=== PATIENT | male | born 1980 | race Caucasian/White ===

== ENCOUNTER 2019-11-23 14:02 | Emergency (ER) | payer MEDICAID ==
[~2019-11-23] VITALS: Ht 172.7 cm; Wt 93.0 kg
[2019-11-23 15:11] LABS: BASOPHILS # (AUTO) 0.1 K/uL (0.0-8.0); BASOPHILS % (AUTO) 1.2 % (0.0-2.0); EOSINOPHILS # (AUTO) 0.3 K/uL (0.0-0.7); EOSINOPHILS % (AUTO) 4.4 % (0.0-7.0); HEMATOCRIT 45.9 % (36.7-47.1); HEMOGLOBIN 15.4 g/dL (12.5-16.3); LYMPHOCYTES # (AUTO) 2.1 K/uL (20.0-40.0); LYMPHOCYTES % (AUTO) 32.3 % (20.5-51.5); MEAN CORPUSCULAR HEMOGLOBIN 30.7 uug (23.8-33.4); MEAN CORPUSCULAR HGB CONC 34 g/dL (32.5-36.3); MEAN CORPUSCULAR VOLUME 91.1 fL (73.0-96.2); MONOCYTES # (AUTO) 0.5 K/uL (2.0-10.0); MONOCYTES % (AUTO) 7.1 % (0.0-11.0); NEUTROPHILS # (AUTO) 3.6 K/uL (1.8-8.9); PLATELET COUNT (AUTO) 280 K/uL (152-348); RED BLOOD CELL COUNT(AUTO) 5.04 MIL/uL (4.06-5.63); WHITE BLOOD COUNT (AUTO) 6.6 K/uL (3.6-10.2)
[2019-11-23 15:24] LABS: CREATININE 1.2 mg/dL (0.6-1.3); POTASSIUM 3.9 mmol/L (3.5-5.1)
[2019-11-23 15:30] LABS: BILIRUBIN,DIRECT 0.1 mg/dL (0.0-0.2); BILIRUBIN,TOTAL 0.3 mg/dL (0.2-1.0); ETHANOL < 3 MG/DL (0-0); TOTAL PROTEIN, SERUM 7.3 g/dL (6.4-8.2)
[2019-11-23] MEDS ORDERED: LORAZEPAM 0.5 MG TABLET PO ONE (15:30)
[2019-11-23] MEDS ORDERED: LORAZEPAM 0.5 MG TABLET ONE (15:31)
--- NOTE | 2019-11-23 16:19 | NUR ---
Pt states feeling better and wishes to be discharged.
[2019-11-23 16:20] VITALS: BP 138/70
--- NOTE | 2019-11-23 16:21 | NUR ---
Patient discharged to home in stable conditon. Written and verbal after care instructions given. Patient verbalizes understanding of instructions.
== END 2019-11-23 16:21 | disposition home or self-care (01) ==
LOC: ER 14:02
DX: F14.980 Cocaine use, unspecified with cocaine-induced anxiety disorder (principal); F10.10 Alcohol abuse, uncomplicated; F17.200 Nicotine dependence, unspecified, uncomplicated; Z88.2 Allergy status to sulfonamides; Z88.8 Allergy status to other drugs, medicaments and biological substances; Y90.9 Presence of alcohol in blood, level not specified
CPT/HCPCS: 36415; 71045; 80048; 80076; 84484; 85025; 93005; 99283; G0480; 70030-TC; A4663

== ENCOUNTER 2020-07-19 01:23 | Emergency (ER) | payer MEDICAID ==
[~2020-07-19] VITALS: Ht 172.7 cm; Wt 77.1 kg
[2020-07-19] MEDS ORDERED: LORA2TAB PO (01:29)
[2020-07-19] MEDS ORDERED: AMPH15TA2 PO (01:29)
--- NOTE | 2020-07-19 01:36 | NUR ---
at bedside for assessment
[2020-07-19] MEDS ORDERED: diphenhydrAMINE 25 MG CAP PO ONE ×2 (01:43→01:45)
[2020-07-19] MEDS ORDERED: LORAZEPAM 1 MG TABLET ONE (01:43)
[2020-07-19] MEDS ORDERED: predniSONE 10 MG TABLET ONE (01:44)
[2020-07-19] MEDS ORDERED: predniSONE 50 MG TABLET ONE (01:44)
[2020-07-19] MEDS ORDERED: LORAZEPAM 0.5 MG TABLET PO ONE (01:45)
[2020-07-19] MEDS ORDERED: predniSONE 20 MG TABLET PO ONE (01:45)
--- NOTE | 2020-07-19 01:50 | NUR ---
Patient discharged to home in stable condition. Instructed not to drive, states his niece will pick him up, Rx given, no signs of distress noted, ambulated with steady gait. took all belongings. Written and verbal after care instructions given. Patient verbalizes understanding of instructions. Stressed follow up or return to ER for worsening s/s.
[2020-07-19 01:54] VITALS: BP 135/78
== END 2020-07-19 01:55 | disposition home or self-care (01) ==
LOC: ER 01:26
DX: F15.180 Other stimulant abuse with stimulant-induced anxiety disorder (principal); Z88.2 Allergy status to sulfonamides; Z88.8 Allergy status to other drugs, medicaments and biological substances; F17.200 Nicotine dependence, unspecified, uncomplicated; R03.0 Elevated blood-pressure reading, without diagnosis of hypertension
CPT/HCPCS: 99284; J7512 ×2; Q0163; A4663

== ENCOUNTER 2020-08-16 02:00 | Emergency (ER) | payer MEDICAID ==
[~2020-08-16] VITALS: Ht 172.7 cm; Wt 77.1 kg
[~2020-08-16 02:00] MED LIST: AMPH15TA2 PO; LORA2TAB PO
[2020-08-16 02:30] LABS: *BILIRUBIN,URIN NEGATIVE (NEGATIVE); *BLOOD, URINE NEGATIVE (NEGATIVE); *CLARITY,URINE CLEAR (CLEAR); *COLOR,URINE LIGHT YELLOW (YELLOW); *KETONES,URINE NEGATIVE (NEGATIVE); *UROBILINOGEN,URINE 0.2 E.U./dl (NORMAL); LEUKOCYTE ESTERASE ,URINE NEGATIVE (NEGATIVE); NITRITE, URINE NEGATIVE (NEGATIVE); UGLUCOSE NEGATIVE (NEGATIVE)
--- NOTE | 2020-08-16 03:01 | NUR ---
ERMD at bedside for MSE
[2020-08-16] MEDS ORDERED: AZITHROMYCIN 250 MG TABLET PO ONE (03:15)
[2020-08-16] MEDS ORDERED: CEFTRIAXONE 500 MG VIAL IM ONE (03:15)
[2020-08-16] MEDS ORDERED: CEFTRIAXONE 500 MG VIAL ONE (03:18)
[2020-08-16] MEDS ORDERED: AZITHROMYCIN 250 MG TABLET ONE (03:18)
[2020-08-16] MEDS ORDERED: LIDOCAINE HCL 1% 20 ML VIAL ONE (03:21)
--- NOTE | 2020-08-16 03:37 | NUR ---
Patient discharged to home in stable condition. Written and verbal after care instructions given. Patient verbalizes understanding of instructions. Stressed follow up or return to ER for worsening s/s.
[2020-08-16 03:38] VITALS: BP 144/89
[2020-08-17 22:07] LABS: *GC NAA Negative (Negative); *TRIC.VAG. NAA Negative (Negative)
== END 2020-08-16 03:40 | disposition home or self-care (01) ==
LOC: ER 02:04
DX: N34.2 Other urethritis (principal); Z88.1 Allergy status to other antibiotic agents; Z88.2 Allergy status to sulfonamides; Z88.8 Allergy status to other drugs, medicaments and biological substances
CPT/HCPCS: 36415; 81001; 86592; 87491; 96372; 99283; J0696; J3490; A4663; Q0144

== ENCOUNTER 2020-12-28 22:29 | Emergency (ER) | payer MEDICAID ==
[~2020-12-28] VITALS: Ht 167.6 cm; Wt 72.6 kg
[2020-12-28] MEDS ORDERED: LORAZEPAM 2 MG/1 ML VIAL IV ONE (22:45)
[2020-12-28] MEDS ORDERED: IV NORMAL SALINE 1000 ML BAG IV ONE (22:45)
[2020-12-28] MEDS ORDERED: LORAZEPAM 2 MG/1 ML VIAL ONE (23:01)
--- NOTE | 2020-12-28 23:02 | NUR ---
Patient was brought in by his friend for panic atack. Admits to drug use. Patient was given Ativan 1 mg IV as ordered. Immediately after medication administration, patient attempted to run out. IV was removed. Dr. Hill was aware. Patient signed out against medical advice.
[2020-12-28 23:05] VITALS: BP 153/100
[2020-12-28 23:07] LABS: BASOPHILS # (AUTO) 0.1 K/uL (0.0-8.0); BASOPHILS % (AUTO) 0.9 % (0.0-2.0); EOSINOPHILS # (AUTO) 0.1 K/uL (0.0-0.7); EOSINOPHILS % (AUTO) 1.2 % (0.0-7.0); HEMATOCRIT 44.1 % (36.7-47.1); HEMOGLOBIN 14.4 g/dL (12.5-16.3); MEAN CORPUSCULAR HEMOGLOBIN 29.1 uug (23.8-33.4); MEAN CORPUSCULAR HGB CONC 33 g/dL (32.5-36.3); MEAN CORPUSCULAR VOLUME 89.2 fL (73.0-96.2); MONOCYTES # (AUTO) 0.7 K/uL (2.0-10.0); MONOCYTES % (AUTO) 7.8 % (0.0-11.0); NEUTROPHILS # (AUTO) 4.2 K/uL (1.8-8.9); NEUTROPHILS % (AUTO) 46.1 % (38.5-71.5); PLATELET COUNT (AUTO) 462 K/uL (152-348); RED BLOOD CELL COUNT(AUTO) 4.94 MIL/uL (4.06-5.63); WHITE BLOOD COUNT (AUTO) 9.1 K/uL (3.6-10.2)
--- NOTE | 2020-12-28 23:07 | NUR ---
EKG was not done. pt left AMA
[2020-12-28 23:17] LABS: ALANINE AMINOTRANSFERASE 28 U/L (16-63); ALKALINE PHOSPHATASE 71 U/L (50-136); ASPARTATE AMINOTRANSFERASE 17 U/L (15-37); BILIRUBIN,DIRECT 0.1 mg/dL (0.0-0.2); BILIRUBIN,TOTAL 0.4 mg/dL (0.2-1.0); CARBON DIOXIDE 24 mmol/L (21-32); CHLORIDE 99 mmol/L (98-107); CREATININE 1.2 mg/dL (0.6-1.3); GLUCOSE 93 mg/dL (74-106); POTASSIUM 3.5 mmol/L (3.5-5.1); TOTAL PROTEIN, SERUM 8.2 g/dL (6.4-8.2); UREA NITROGEN, BLOOD 12 mg/dL (7-18)
[2020-12-28 23:20] LABS: *BILIRUBIN,URIN 1+ (NEGATIVE); *BLOOD, URINE NEGATIVE (NEGATIVE); *COLOR,URINE AMBER (YELLOW); *KETONES,URINE NEGATIVE (NEGATIVE); LEUKOCYTE ESTERASE ,URINE NEGATIVE (NEGATIVE); NITRITE, URINE NEGATIVE (NEGATIVE); PH,URINE 6.5 (5.0-8.0); UGLUCOSE NEGATIVE (NEGATIVE)
[2020-12-28 23:22] LABS: *CLARITY,URINE HAZY (CLEAR)
[2020-12-28 23:23] LABS: ACETAMINOPHEN < 2.0 ug/mL (10-30)
[2020-12-28 23:26] LABS: ETHANOL < 3 MG/DL (0-0)
[2020-12-28 23:28] LABS: BACTERIA,URINE NONE SEEN /HPF (NONE SEEN); RBC,URINE 0-3 /HPF (0-3); SQUAMOUS EPITHELIAL CELL,UR FEW /HPF (NONE SEEN); WBC,URINE NONE SEEN /HPF (0-3)
[2020-12-28 23:34] LABS: *AMPHETAMINE, URINE POSITIVE (NEGATIVE); *CANNABINOID, URINE NEGATIVE (NEGATIVE); *COCCAINE, URINE NEGATIVE (NEGATIVE); *OPIATE, URINE NEGATIVE (NEGATIVE); *PHENCYCLIDINE SCREEN,URINE NEGATIVE (NEGATIVE)
== END 2020-12-28 23:08 | disposition left against medical advice (07) ==
LOC: ER 22:30
DX: F43.0 Acute stress reaction (principal); F19.10 Other psychoactive substance abuse, uncomplicated; D69.6 Thrombocytopenia, unspecified; F17.210 Nicotine dependence, cigarettes, uncomplicated
CPT/HCPCS: 36415; 80048; 80076; 80299; 80307; 80320; 81001; 85025; 96374; 99284; 99406; J2060; 93005; A4663; G0480; J7030